=== PATIENT | male | born 1995 | race Caucasian/White ===

== ENCOUNTER 2017-10-31 09:05 | Inpatient (IN) | payer OTHER ==
[~2017-10-31] VITALS: Ht 190.5 cm; Wt 105.0 kg
[2017-10-31] VITALS (7 sets, daily range): BP systolic 102–141; BP diastolic 68–78; PULSE 60–73; RESP 14–20; TEMP 97.8–98.4; O2SAT 97–100
[~2017-10-31 09:05] MED LIST: IBUP800T23 PO; TRAM50 PO
[2017-10-31] MEDS ORDERED: CLINDAMYCIN INJ 900 MG in SODIUM CHLORIDE 0.9% INJ 100 ML IV STA (09:20)
[2017-10-31] MEDS ORDERED: VANCOMYCIN INJ 1,000 MG in SODIUM CHLOR 0.9% 250 ML INJ 250 ML IV STA (09:20)
[2017-10-31] MEDS ORDERED: PIPERACIL-TAZO 4.5 GM PREMIX 100 ML IV STA (09:20)
--- NOTE | 2017-10-31 09:28 | PD ---
HPI Chief Complaint: Skin Problem Time Seen by Provider: 09:12 Travel History International Travel<30 days: No Contact w/Intl Traveler<30days: No Traveled to known affect area: No History of Present Illness HPI Patient gives a 2 day history of left proximal forearm area redness, which worsened over the past 2 days. The pain was not as significant as the amount of swelling that occurred (3/10 pain scale). Patient stated that he presented himself to an urgent care who referred him to an emergency department for IV antibiotics and further care. Patient denies any IV drug abuse. Patient also denies any associated factors such as fever, headache, neck stiffness, chest pain, abdominal pain, back pain. Patient denies any alleviating or aggravating factors. [facility] Social History Tobacco Use: No Allergies-Medications (Allergen,Severity, Reaction): Coded Allergies: clarithromycin (Verified Allergy, Unknown, 10/31/17) Uncoded Allergies: CILLINS (Allergy, Severe, UNKNOWN, 09/18/13) Reported Meds & Prescriptions Reported Meds & Active Scripts Active Review of Systems General / Constitutional: No: Fever Eyes: No: Visual changes HENT: No: Headaches Cardiovascular: No: Chest Pain or Discomfort Respiratory: No: Shortness of Breath Gastrointestinal: No: Abdominal Pain Genitourinary: No: Dysuria Musculoskeletal: No: Pain Skin: Positive Lesions (Redness and swelling to form left) Neurologic: No: Weakness Psychiatric: No: Depression Endocrine: No: Polydipsia Hematologic/Lymphatic: No: Easy Bruising Physical Exam Narrative GENERAL: SKIN: Warm and dry. Left proximal forearm over brachioradialis there is a 12 x 8 oval shaped erythematous/warm/no crepitus lesion. With a streak heading towards his armpit HEAD: Atraumatic. Normocephalic. EYES: Pupils equal and round. No scleral icterus. No injection or drainage. ENT: No nasal bleeding or discharge. Mucous membranes pink and moist. NECK: Trachea midline. No JVD. CARDIOVASCULAR: Regular rate and rhythm. RESPIRATORY: No accessory muscle use. Clear to auscultation. Breath sounds equal bilaterally. GASTROINTESTINAL: Abdomen soft, non-tender, nondistended. Hepatic and splenic margins not palpable. MUSCULOSKELETAL: Extremities without clubbing, cyanosis, or edema. No obvious deformities. NEUROLOGICAL: Awake and alert. No obvious cranial nerve deficits. Motor grossly within normal limits. Five out of 5 muscle strength in the arms and legs. Normal speech. PSYCHIATRIC: Appropriate mood and affect; insight and judgment normal. Data Data Last Documented VS Vital Signs Date Time Temp Pulse Resp B/P (MAP) Pulse Ox O2 Delivery O2 Flow Rate FiO2 10/31/17 11:30 97.8 73 20 119/69 (86) 99 10/31/17 10:23 Room Air Orders Orders Sepsis Workup Initiated (10/31/17 ) Complete Blood Count With Diff (10/31/17 09:20) Comprehensive Metabolic Panel (10/31/17 09:20) Prothrombin Time / Inr (Pt) (10/31/17 09:20) Act Partial Throm Time (Ptt) (10/31/17 09:20) Lactic Acid Sepsis Protocol (10/31/17 09:20) Urinalysis - C+S If Indicated (10/31/17 09:20) Blood Culture (10/31/17 09:20) Blood Glucose (10/31/17 09:20) Ecg Monitoring (10/31/17 09:20) Iv Access Insert/Monitor (10/31/17 09:20) Oximetry (10/31/17 09:20) Piperacil-Tazo 4.5 Gm Premix (Zosyn 4.5 (10/31/17 09:20) Vancomycin Inj (Vancomycin Inj) (10/31/17 09:20) Creatine Kinase (Cpk) (10/31/17 09:20) Westergren Sedimentation Rate (10/31/17 09:20) Sodium Chlor 0.9% 1000 Ml Inj (Ns 1000 M (10/31/17 09:30) Clindamycin 900 Mg/Ns Premix (Cleocin 90 (10/31/17 09:45) Urine Culture (10/31/17 09:30) Drug Screen, Random Urine (10/31/17 11:43) Admit Order (Ed Use Only) (10/31/17 11:44) Labs Laboratory Tests Test 10/31/17 09:30 10/31/17 09:37 Urine Collection Type CATH Urine Color STRAW Urine Turbidity CLEAR Urine pH 5.5 Urine Specific [place] 1.034 Urine Protein TRACE mg/dL Urine Glucose (UA) NEG mg/dL Urine Ketones NEG mg/dL Urine Occult Blood NEG Urine Nitrite NEG Urine Bilirubin NEG Urine Leukocyte Esterase NEG Urine WBC 6-8 /hpf Urine Bacteria RARE /hpf Microscopic Urinalysis Comment CATH-CULTURE IND Urine Opiates Screen NEG Urine Barbiturates Screen NEG Urine Amphetamines Screen NEG Urine Benzodiazepines Screen NEG Urine Cocaine Screen NEG Urine Cannabinoids Screen POS White Blood Count 10.8 TH/MM3 Red Blood Count 5.08 MIL/MM3 Hemoglobin 15.5 GM/DL Hematocrit 44.9 % Mean Corpuscular Volume 88.5 FL Mean Corpuscular Hemoglobin 30.6 PG Mean Corpuscular Hemoglobin Concent 34.6 % Red Cell Distribution Width 12.5 % Platelet Count 287 TH/MM3 Mean Platelet Volume 9.1 FL Neutrophils (%) (Auto) 49.7 % Lymphocytes (%) (Auto) 35.0 % Monocytes (%) (Auto) 10.5 % Eosinophils (%) (Auto) 4.1 % Basophils (%) (Auto) 0.7 % Neutrophils # (Auto) 5.4 TH/MM3 Lymphocytes # (Auto) 3.8 TH/MM3 Monocytes # (Auto) 1.1 TH/MM3 Eosinophils # (Auto) 0.4 TH/MM3 Basophils # (Auto) 0.1 TH/MM3 CBC Comment DIFF FINAL Differential Comment Erythrocyte Sedimentation Rate 6 mm/hr Prothrombin Time 10.3 SEC Prothromb Time International Ratio 1.0 RATIO Activated Partial Thromboplast Time 29.2 SEC Blood Urea Nitrogen 8 MG/DL Creatinine 0.97 MG/DL Random Glucose 88 MG/DL Total Protein 8.6 GM/DL Albumin 4.3 GM/DL Calcium Level 9.0 MG/DL Alkaline Phosphatase 54 U/L Aspartate Amino Transf (AST/SGOT) 15 U/L Alanine Aminotransferase (ALT/SGPT) 24 U/L Total Bilirubin 0.7 MG/DL Sodium Level 138 MEQ/L Potassium Level 3.3 MEQ/L Chloride Level 102 MEQ/L Carbon Dioxide Level 28.3 MEQ/L Anion Gap 8 MEQ/L Estimat Glomerular Filtration Rate 97 ML/MIN Lactic Acid Level 0.7 mmol/L Total Creatine Kinase 80 U/L [facility] Medical Decision Making Medical Screen Exam Complete: Yes Emergency Medical Condition: Yes Medical Record Reviewed: Yes Differential Diagnosis Lymphangitis versus cellulitis versus abscess versus necrotizing fasciitis versus rhabdo Narrative Course CBC shows the leukocytosis no anemia and normal platelet count. Without any left shift Coagulation profile within normal limits Urinalysis negative for any evidence of major UTI however culture is indicated due to a rare bacteria count and 6-8 WBCs noted on a cath obtained urine specimen Chemistry profile shows normal liver functions normal kidney functions normal electrolytes lactic acid negative with normal sed rate Diagnosis Primary Impression: significant Left proximal forearm cellulitis Admitting Information Admitting Physician Requests: Observation Scripts Doxycycline Hyclate (Doxycycline Hyclate) 100 Mg Cap 100 MG PO BID for Infection, #20 CAP 0 Refills Prov: Jesus Alberto Caceres MD 11/01/17 Levofloxacin (Levofloxacin) 750 Mg Tablet 750 MG PO DAILY for Infection, #8 TAB 0 Refills Prov: Jesus Alberto Caceres MD 11/01/17 Juan Manuel Khalil MD Oct 31, 2017 09:28
[2017-10-31] MEDS ORDERED: SODIUM CHLOR 0.9% 1000 ML INJ 1,000 ML IV ONE (09:30)
[2017-10-31] MEDS ORDERED: CLINDAMYCIN 900 MG/NS PREMIX 50 ML IV ONE (09:45)
[2017-10-31 09:58] LABS: AUTOMATED NEUTROPHIL # 5.4 TH/MM3 (1.8-7.7); BASOPHIL # 0.1 TH/MM3 (0-0.2); BASOPHIL % 0.7 % (0.0-2.0); EOSINOPHIL # 0.4 TH/MM3 (0-0.4); EOSINOPHIL % 4.1 % (0.0-4.0); HEMATOCRIT 44.9 % (39.0-51.0); HEMOGLOBIN 15.5 GM/DL (13.0-17.0); LYMPHOCYTE # 3.8 TH/MM3 (1.0-4.8); MEAN CELL VOLUME 88.5 FL (80.0-100.0); MEAN CORPUSCULAR HEMOGLOBIN 30.6 PG (27.0-34.0); MEAN CORPUSCULAR HGB CONC 34.6 % (32.0-36.0); MEAN PLATELET VOLUME 9.1 FL (7.0-11.0); MONO % 10.5 % (0.0-8.0); MONOCYTE # 1.1 TH/MM3 (0-0.9); NEUT % 49.7 % (16.0-70.0); PLATELET COUNT 287 TH/MM3 (150-450); RED BLOOD COUNT 5.08 MIL/MM3 (4.50-5.90); RED CELL DISTRIBUTION WIDTH 12.5 % (11.6-17.2); WHITE BLOOD COUNT 10.8 TH/MM3 (4.0-11.0)
[2017-10-31 09:59] LABS: BILIRUBIN, URINE NEG (NEG); BLOOD, URINE NEG (NEG); GLUCOSE,URINE NEG (NEG); KETONE, URINE NEG (NEG); NITRITE,URINE NEG (NEG); PH, URINE 5.5 (5.0-8.5); URINE LEUKOCYTE ESTERASE NEG (NEG)
[2017-10-31 10:11] LABS: CHLORIDE 102 MEQ/L (98-107); SODIUM (NA) 138 MEQ/L (136-145)
[2017-10-31 10:17] LABS: PROTHROMBIN TIME - PATIENT 10.3 SEC (9.8-11.6)
[2017-10-31 10:18] LABS: ALBUMIN 4.3 GM/DL (3.4-5.0); BICARBONATE 28.3 MEQ/L (21.0-32.0); BLOOD UREA NITROGEN 8 MG/DL (7-18); GLUCOSE,RANDOM 88 MG/DL (74-106)
[2017-10-31 10:21] LABS: ALT (GPT) 24 U/L (12-78); AST (GOT) 15 U/L (15-37); CREATININE 0.97 MG/DL (0.60-1.30); GLOMERULAR FILTRATION RATE 97 ML/MIN (>89)
[2017-10-31 10:22] LABS: TOTAL BILIRUBIN ADULT 0.7 MG/DL (0.2-1.0); TOTAL PROTEIN 8.6 GM/DL (6.4-8.2)
[2017-10-31 10:23] LABS: ALKALINE PHOSPHATASE 54 U/L (45-117)
[2017-10-31 10:24] LABS: URINE COLOR STRAW (YELLW/STRAW)
[2017-10-31 10:25] LABS: BACTERIA, URINE RARE /hpf
[2017-10-31] MEDS ORDERED: SODIUM CHLORIDE 0.9% FLUSH 10 ML FLUSH IV FLUSH PRN (12:00)
[2017-10-31] MEDS ORDERED: METOCLOPRAMIDE HCL 10 MG/2 ML VIAL IV PUSH PRN (12:00)
[2017-10-31] MEDS ORDERED: ONDANSETRON HCL 4 MG/2 ML VIAL IVP PRN (12:00)
[2017-10-31] MEDS ORDERED: ACETAMINOPHEN 325 MG TAB PO PRN ×2 (12:00)
[2017-10-31] MEDS ORDERED: Vancomycin Consult Pharmacy 1 EA OTHER SCH (12:00)
[2017-10-31] MEDS ORDERED: NALOXONE HCL 0.4 MG/ML AMP IV PUSH PRN (12:00)
[2017-10-31] MEDS ORDERED: LACTULOSE SYRUP 20 GM/30 ML CUP PO PRN (13:30)
[2017-10-31] MEDS ORDERED: BISACODYL 10 MG SUPP RECTAL PRN (13:30)
[2017-10-31] MEDS ORDERED: MAGNESIUM HYDROXIDE SUSP 30 ML CUP PO PRN (14:00)
[2017-10-31] MEDS ORDERED: ENOXAPARIN SODIUM 40 MG/0.4 ML SYRINGE SQ SCH (15:00)
[2017-10-31] MEDS: SODIUM CHLOR 0.9% 1000 ML INJ 1,000 ML IV SCH (15:38)
[2017-10-31] MEDS: PIPERACIL-TAZO 4.5 GM PREMIX 100 ML IV SCH ×2 (16:56→23:00)
--- NOTE | 2017-10-31 17:10 | HHI.HP ---
[facility] No Primary Care Physician Admission Diagnosis LEFT FOREARM CELLULITIS Diagnoses: (1) Marijuana use Diagnosis: Secondary (2) Cellulitis of left forearm Diagnosis: Principal Chief Complaint: Left forearm swelling and cellulitis Travel History International Travel<30 Days: No Contact w/Intl Traveler <30 Da: No Traveled to Known Affected Are: No History of Present Illness Patient is a 22-year-old male, Who presented to the emergency department today after being seen at a walk-in clinic and recommended to come to the ER regarding left forearm cellulitis. Patient has at least a 2 day history of left proximal forearm area with redness which is worsened over the past few days. Patient was not as significant as the amount of swelling that occurred painless only maybe 3 out of 10. He was seen at the urgent care clinic and recommended him to come to emergency room for IV antibiotics. Patient denies any IV drug abuse. Denies any fevers denies any headache denies any neck stiffness denies any chest pain denies any abdominal pain denies any back pain denies any aggravating or alleviating factors Patient will be admitted for cellulitis of left forearm has been started on vancomycin and Zosyn with improvement already Review of Systems Constitutional: COMPLAINS OF: Chills, DENIES: Diaphoretic episodes, Fatigue, Fever, Weight gain, Weight loss, Dizziness, Change in appetite, Night Sweats Endocrine: DENIES: Heat/cold intolerance, Polydipsia, Polyuria, Polyphagia Eyes: DENIES: Blurred vision, Diplopia, Eye inflammation, Eye pain, Vision loss , Photosensitivity Ears, nose, mouth, throat: DENIES: Tinnitus, Hearing loss, Vertigo, Nasal discharge, Oral lesions, Throat pain, Hoarseness Respiratory: DENIES: Apneas, Cough, Snoring, Wheezing, Hemoptysis, Sputum production Cardiovascular: DENIES: Chest pain, Palpitations, Syncope, Dyspnea on Exertion , PND Gastrointestinal: DENIES: Abdominal pain, Black stools, Bloody stools, Constipation, Diarrhea, Nausea, Vomiting Genitourinary: DENIES: Sexual dysfunction, Urinary frequency, Urinary incontinence, Urgency, Hematuria, Dysuria Musculoskeletal: DENIES: Joint pain, Muscle aches, Stiffness, Joint Swelling, Back pain Integumentary: COMPLAINS OF: Abnormal pigmentation, Rash (swelling in left forearm with streaking) Hematologic/lymphatic: DENIES: Bruising, Lymphadenopathy Immunologic/allergic: DENIES: Eczema, Urticaria Neurologic: DENIES: Abnormal gait, Headache, Localized weakness, Paresthesias, Seizures, Speech Problems, Tremor, Poor Balance Psychiatric: DENIES: Anxiety, Confusion, Mood changes, Depression, Hallucinations, Agitation, Suicidal Ideation, Homicidal Ideation, Delusions Except as stated in HPI: all other systems reviewed are Neg Past Family Social History Past Medical History Chiari malformation Kyphosis of the spine Past Surgical History Denies Reported Medications Reported Meds & Active Scripts Active Allergies: Coded Allergies: clarithromycin (Verified Allergy, Unknown, 10/31/17) Uncoded Allergies: CILLINS (Allergy, Severe, UNKNOWN, 09/18/13) Active Ordered Medications Current Medications Piperacillin Sod/ Tazobactam Sod 100 ml @ 200 mls/hr ONCE STAT IV Last administered on 10/31/17at 10:28; Start 10/31/17 at 09:20; Stop 10/31/17 at 09:49 ; Status DC Clindamycin Phosphate 900 mg/ Sodium Chloride 106 ml @ 200 mls/hr ONCE STAT IV ; Start 10/31/17 at 09:20; Stop 10/31/17 at 09:51; Status Cancel Vancomycin HCl 1000 mg/Sodium Chloride 250 ml @ 250 mls/hr ONCE STAT IV Last administered on 10/31/17at 11:17; Start 10/31/17 at 09:20; Stop 10/31/17 at 10:19 ; Status DC Sodium Chloride 1,000 ml @ 999 mls/hr BOLUS ONCE IV Last administered on 10/31at 10:00; Start 10/31/17 at 09:30; Stop 10/31/17 at 10:30; Status DC Clindamycin/ Sodium Chloride 50 ml @ 100 mls/hr ONCE ONCE IV Last administered on 10/31/17at 10:00; Start 10/31/17 at 09:45; Stop 10/31/17 at 10:14 ; Status DC Sodium Chloride 1,000 ml @ 100 mls/hr Q10H IV Last administered on 10/31/17at 15:38; Start 10/31/17 at 11:51 Sodium Chloride (NS Flush) 2 ml UNSCH PRN IV FLUSH FLUSH AFTER USING IV ACCESS ; Start 10/31/17 at 12:00 Sodium Chloride (NS Flush) 2 ml BID IV FLUSH ; Start 10/31/17 at 21:00 Acetaminophen (Tylenol) 650 mg Q4H PRN PO TEMP > 100.4; Start 10/31/17 at 12:00 Ondansetron HCl (Zofran Inj) 4 mg Q6H PRN IVP NAUSEA OR VOMITING; Start at 12:00 Metoclopramide HCl (Reglan Inj) 5 mg Q6H PRN IV PUSH NAUSEA OR VOMITING; Start 10/31/17 at 12:00 Zolpidem Tartrate (Ambien) 5 mg HS PRN PO INSOMNIA; Start 10/31/17 at 21:00 Enoxaparin Sodium (Lovenox Inj) 40 mg Q24H SQ Last administered on 10/31/17at 15 :39; Start 10/31/17 at 15:00 Acetaminophen (Tylenol) 650 mg Q6H PRN PO PAIN SCALE 1 TO 2; Start 10/31/17 at 12:00 Naloxone HCl (Narcan Inj) 0.4 mg UNSCH PRN IV PUSH SEE LABEL COMMENTS; Start at 12:00 Senna/Docusate Sodium (Shelbie-Colace) 1 tab BID PO ; Start 10/31/17 at 21:00 Magnesium Hydroxide (Milk Of Magnesia Liq) 30 ml Q12HR PRN PO Mild constipation ; Start 10/31/17 at 14:00 Sennosides (Senokot) 17.2 mg Q12HR PRN PO Moderate constipation; Start at 21:00 Bisacodyl (Dulcolax Supp) 10 mg DAILY PRN RECTAL SEVERE CONSITIPATION; Start at 13:30 Lactulose (Lactulose Liq) 30 ml DAILY PRN PO SEVERE CONSITIPATION; Start at 13:30 Pharmacy Profile Note 0 ml @ 0 mls/hr UNSCH OTHER ; Start 10/31/17 at 12:00 Piperacillin Sod/ Tazobactam Sod 100 ml @ 200 mls/hr Q6H IV Last administered on 2/26/18at 16:56; Start 10/31/17 at 16:00 Vancomycin HCl 2000 mg/Sodium Chloride 520 ml @ 250 mls/hr Q12H IV ; Start at 18:00 Family History Father with history of IV drug abuse in detention Mother no medical problems Social History Smokes marijuana Denies any illicits denies any alcohol or tobacco Physical Exam Vital Signs Vital Signs Date Time Temp Pulse Resp B/P (MAP) Pulse Ox O2 Delivery O2 Flow Rate FiO2 10/31/17 15:38 97.9 70 20 133/71 (91) 99 10/31/17 12:16 85 18 134/78 (96) 99 10/31/17 11:30 97.8 73 20 119/69 (86) 99 10/31/17 10:23 68 18 141/77 (98) 100 Room Air 10/31/17 09:42 98 Room Air 10/31/17 09:05 97.9 65 14 140/68 (92) 100 Physical Exam GENERAL: This is a well-nourished, well-developed patient, in no apparent distress. SKIN: No ecchymoses or lesions. Cool and dry. Rash involving the left forearm previously had streaking up above the antecubital fossa. Now only below the antecubital fossa with some swelling and tenderness has some warmth of left forearm HEAD: Atraumatic. Normocephalic. No temporal or scalp tenderness. EYES: Pupils equal round and reactive. Extraocular motions intact. No scleral icterus. No injection or drainage. ENT: Nose without bleeding, purulent drainage or septal hematoma. Throat without erythema, tonsillar hypertrophy or exudate. Uvula midline. Airway patent. NECK: Trachea midline. No JVD or lymphadenopathy. Supple, nontender, no meningeal signs. CARDIOVASCULAR: Regular rate and rhythm without murmurs, gallops, or rubs. RESPIRATORY: Clear to auscultation. Breath sounds equal bilaterally. No wheezes , rales, or rhonchi. GASTROINTESTINAL: Abdomen soft, non-tender, nondistended. No hepato-splenomegaly , or palpable masses. No guarding. MUSCULOSKELETAL: Extremities without clubbing, cyanosis, or edema. No joint tenderness, effusion, or edema noted. No calf tenderness. Negative Homans sign bilaterally. NEUROLOGICAL: Awake and alert. Cranial nerves II through XII intact. Motor and sensory grossly within normal limits. Five out of 5 muscle strength in all muscle groups. Normal speech. Insight and judgment is good Mood and behavior is appropriate Laboratory Laboratory Tests Test 10/31/17 09:30 10/31/17 09:37 Urine Collection Type CATH Urine Color STRAW Urine Turbidity CLEAR Urine pH 5.5 Urine Specific [place] 1.034 Urine Protein TRACE Urine Glucose (UA) NEG Urine Ketones NEG Urine Occult Blood NEG Urine Nitrite NEG Urine Bilirubin NEG Urine Leukocyte Esterase NEG Urine WBC 6-8 Urine Bacteria RARE Microscopic Urinalysis Comment CATH-CULTURE IND Urine Opiates Screen NEG Urine Barbiturates Screen NEG Urine Amphetamines Screen NEG Urine Benzodiazepines Screen NEG Urine Cocaine Screen NEG Urine Cannabinoids Screen POS White Blood Count 10.8 Red Blood Count 5.08 Hemoglobin 15.5 Hematocrit 44.9 Mean Corpuscular Volume 88.5 Mean Corpuscular Hemoglobin 30.6 Mean Corpuscular Hemoglobin Concent 34.6 Red Cell Distribution Width 12.5 Platelet Count 287 Mean Platelet Volume 9.1 Neutrophils (%) (Auto) 49.7 Lymphocytes (%) (Auto) 35.0 Monocytes (%) (Auto) 10.5 Eosinophils (%) (Auto) 4.1 Basophils (%) (Auto) 0.7 Neutrophils # (Auto) 5.4 Lymphocytes # (Auto) 3.8 Monocytes # (Auto) 1.1 Eosinophils # (Auto) 0.4 Basophils # (Auto) 0.1 CBC Comment DIFF FINAL Differential Comment Erythrocyte Sedimentation Rate 6 Prothrombin Time 10.3 Prothromb Time International Ratio 1.0 Activated Partial Thromboplast Time 29.2 Blood Urea Nitrogen 8 Creatinine 0.97 Random Glucose 88 Total Protein 8.6 Albumin 4.3 Calcium Level 9.0 Alkaline Phosphatase 54 Aspartate Amino Transf (AST/SGOT) 15 Alanine Aminotransferase (ALT/SGPT) 24 Total Bilirubin 0.7 Sodium Level 138 Potassium Level 3.3 Chloride Level 102 Carbon Dioxide Level 28.3 Anion Gap 8 Estimat Glomerular Filtration Rate 97 Lactic Acid Level 0.7 Total Creatine Kinase 80 Date/Time Source Procedure Growth Status 10/31/17 09:37 Blood Peripheral Aerobic Blood Culture Pending Received 10/31/17 09:37 Blood Peripheral Anaerobic Blood Culture Pending Received 10/31/17 09:30 Urine Clean Catch Urine Culture Pending Received Result Diagram: 10/31/1737 10/31/1737 Caprini VTE Risk Assessment Caprini VTE Risk Assessment: No/Low Risk (score <= 1) Caprini Risk Assessment Model Point Value = 1 Point Value = 2 Point Value = 3 Point Value = 5 Age 41-60 Minor surgery BMI > 25 kg/m2 Swollen legs Varicose veins or History of unexplained or recurrent spontaneous Oral contraceptives or hormone replacement Sepsis (< 1 month) Serious lung disease, including pneumonia (< 1 month) Abnormal pulmonary function Acute myocardial infarction Congestive heart failure (< 1 month) History of inflammatory bowel disease Medical patient at bed rest Age 61-74 Arthroscopic surgery Major open surgery (> 45 min) Laparoscopic surgery (> 45 min) Malignancy Confined to bed (> 72 hours) Immobilizing plaster cast Central venous access Age >= 75 History of VTE Family history of VTE Factor V Leiden Prothrombin [id number] Lupus anticoagulant Anticardiolipin antibodies Elevated serum homocysteine Heparin-induced thrombocytopenia Other congenital or acquired thrombophilia Stroke (< 1 month) Elective arthroplasty Hip, pelvis, or leg fracture Acute spinal cord injury (< 1 month) Prophylaxis Regimen Total Risk Factor Score Risk Level Prophylaxis Regimen 0-1 Low Early ambulation 2 Moderate Order ONE of the following: *Sequential Compression Device (SCD) *Heparin 5000 units SQ BID 3-4 Higher Order ONE of the following medications: *Heparin 5000 units SQ TID *Enoxaparin/Lovenox 40 mg SQ daily (WT < 150 kg, CrCl > 30 mL/min) *Enoxaparin/Lovenox 30 mg SQ daily (WT < 150 kg, CrCl > 10-29 mL/min) *Enoxaparin/Lovenox 30 mg SQ BID (WT < 150 kg, CrCl > 30 mL/min) AND/OR *Sequential Compression Device (SCD) 5 or more Highest Order ONE of the following medications: *Heparin 5000 units SQ TID (Preferred with Epidurals) *Enoxaparin/Lovenox 40 mg SQ daily (WT < 150 kg, CrCl > 30 mL/min) *Enoxaparin/Lovenox 30 mg SQ daily (WT < 150 kg, CrCl > 10-29 mL/min) *Enoxaparin/Lovenox 30 mg SQ BID (WT < 150 kg, CrCl > 30 mL/min) AND *Sequential Compression Device (SCD) Assessment and Plan Problem List: (1) Hypokalemia ICD Code: E87.6 - Hypokalemia (2) Cellulitis of left forearm ICD Code: L03.114 - Cellulitis of left upper limb (3) Marijuana use ICD Code: F12.90 - Cannabis use, unspecified, uncomplicated Assessment and Plan Cellulitis of left forearm with streaking with improvement with vancomycin and Zosyn We'll ask pharmacy to consult regarding the vancomycin. A.m. labs Continue IV fluids Hypokalemia Will replace Marijuana abuse recommend cessation A.m. labs Pain control as needed DVT prophylaxis Code Status Full code Discussed Condition With Emergency room physician as well as the patient and his RN Physician Certification 2 Midnight Certification Type: Admission for Inpatient Services Order for Inpatient Services The services are ordered in accordance with Medicare regulations or non- Medicare payer requirements, as applicable. In the case of services not specified as inpatient-only, they are appropriately provided as inpatient services in accordance with the 2-midnight benchmark. Estimated LOS (days): 2 days is the estimated time the patient will need to remain in the hospital, assuming treatment plan goals are met and no additional complications. Post-Hospital Plan: Home Avtar Ramsey DO Oct 31, 2017 17:10
[2017-10-31] MEDS: VANCOMYCIN INJ 2,000 MG in SODIUM CHLORID 0.9% 500 ML INJ 500 ML IV SCH (17:42)
[2017-10-31] MEDS ORDERED: POTASSIUM CHLORIDE 20 MEQ CONTROLLED RELEASE TAB PO ONE (18:00)
[2017-10-31] MEDS: SODIUM CHLORIDE 0.9% FLUSH 10 ML FLUSH IV FLUSH SCH (20:03)
[2017-10-31] MEDS ORDERED: SENNOSIDES 8.6 MG TAB PO PRN (21:00)
[2017-10-31] MEDS: DOCUSATE SODIUM 50 MG/SENNA 8.6 MG TAB PO SCH (21:00)
[2017-10-31] MEDS ORDERED: ZOLPIDEM TARTRATE 5 MG TAB PO PRN (21:00)
[2017-11-01] VITALS: BP 119/68; PULSE 72; RESP 20; TEMP 97.8; O2SAT 98
[2017-11-01] MEDS: PIPERACIL-TAZO 4.5 GM PREMIX 100 ML IV SCH ×2 (04:43→10:00)
[2017-11-01] MEDS: VANCOMYCIN INJ 2,000 MG in SODIUM CHLORID 0.9% 500 ML INJ 500 ML IV SCH (04:45)
[2017-11-01 07:04] LABS: AUTOMATED NEUTROPHIL # 4.5 TH/MM3 (1.8-7.7); BASOPHIL # 0.1 TH/MM3 (0-0.2); BASOPHIL % 0.6 % (0.0-2.0); EOSINOPHIL # 0.5 TH/MM3 (0-0.4); EOSINOPHIL % 6.4 % (0.0-4.0); HEMATOCRIT 44.7 % (39.0-51.0); HEMOGLOBIN 14.5 GM/DL (13.0-17.0); LYMPH % 28.8 % (9.0-44.0); LYMPHOCYTE # 2.4 TH/MM3 (1.0-4.8); MEAN CORPUSCULAR HEMOGLOBIN 28.9 PG (27.0-34.0); MEAN CORPUSCULAR HGB CONC 32.5 % (32.0-36.0); MEAN PLATELET VOLUME 9.4 FL (7.0-11.0); MONO % 11.3 % (0.0-8.0); MONOCYTE # 0.9 TH/MM3 (0-0.9); NEUT % 52.9 % (16.0-70.0); PLATELET COUNT 253 TH/MM3 (150-450); RED BLOOD COUNT 5.02 MIL/MM3 (4.50-5.90); RED CELL DISTRIBUTION WIDTH 12.2 % (11.6-17.2); WHITE BLOOD COUNT 8.4 TH/MM3 (4.0-11.0)
[2017-11-01 07:17] LABS: CHLORIDE 108 MEQ/L (98-107); SODIUM (NA) 139 MEQ/L (136-145)
[2017-11-01 07:31] LABS: CALCIUM 8.8 MG/DL (8.5-10.1)
[2017-11-01 07:32] LABS: BICARBONATE 23.4 MEQ/L (21.0-32.0); BLOOD UREA NITROGEN 5 MG/DL (7-18); GLUCOSE,RANDOM 82 MG/DL (74-106); MAGNESIUM 2.2 MG/DL (1.5-2.5)
[2017-11-01 07:35] LABS: ALT (GPT) 29 U/L (12-78); AST (GOT) 19 U/L (15-37); CREATININE 0.82 MG/DL (0.60-1.30); GLOMERULAR FILTRATION RATE 117 ML/MIN (>89); PHOSPHORUS 3.6 MG/DL (2.5-4.9)
[2017-11-01 07:36] LABS: TOTAL BILIRUBIN ADULT 1.2 MG/DL (0.2-1.0)
[2017-11-01 07:37] LABS: ALKALINE PHOSPHATASE 50 U/L (45-117); TOTAL PROTEIN 8.1 GM/DL (6.4-8.2)
[2017-11-01 08:00] VITALS: BP 114/56; PULSE 50; RESP 16; TEMP 97.3; O2SAT 99
[2017-11-01] MEDS: SODIUM CHLORIDE 0.9% FLUSH 10 ML FLUSH IV FLUSH SCH (08:37)
[2017-11-01] MEDS: DOCUSATE SODIUM 50 MG/SENNA 8.6 MG TAB PO SCH (08:38)
[2017-11-01 10:02] LABS: FREE T4 1.12 NG/DL (0.76-1.46)
[2017-11-01] MEDS: SODIUM CHLOR 0.9% 1000 ML INJ 1,000 ML IV SCH (10:07)
[2017-11-01] MEDS ORDERED: LEVO750T3 PO (11:26)
[2017-11-01] MEDS ORDERED: DOXY100C PO (11:26)
--- NOTE | 2017-11-01 11:26 | HHI.DCPOC ---
Discharge Care Plan Diagnosis: (1) Cellulitis of left forearm Goals to Promote Your Health * To prevent worsening of your condition and complications * To maintain your health at the optimal level Directions to Meet Your Goals Take your medications as prescribed Follow your dietary instruction Follow activity as directed Keep your appointments as scheduled Take your immunizations and boosters as scheduled If your symptoms worsen call your PCP, if no PCP go to Urgent Care Center or Emergency Room Smoking is Dangerous to Your Health. Avoid second hand smoke Call the 24-hour hour crisis hotline for domestic abuse at Jesus Alberto Caceres MD Nov 01, 2017 11:26
--- NOTE | 2017-11-01 11:28 | HHI.PR ---
Subjective Remarks Nursing denies any deterioration since last night. Patient also says he essentially has no pain. Says that his redness and swelling is much better since yesterday. Denies any nausea vomiting fevers. Objective Vital Signs Date Time Temp Pulse Resp B/P (MAP) Pulse Ox O2 Delivery O2 Flow Rate FiO2 11/01/17 00:00 97.8 72 20 119/68 (85) 98 10/31/17 20:00 98.4 60 20 102/71 (81) 97 10/31/17 15:38 97.9 70 20 133/71 (91) 99 10/31/17 12:16 85 18 134/78 (96) 99 10/31/17 11:30 97.8 73 20 119/69 (86) 99 I/O 10/31/17 10/31/17 10/31/17 11/01/17 11/01/17 11/01/17 07:00 15:00 23:00 07:00 15:00 23:00 Intake Total 1353 ml 2880 ml 1450 ml Balance 1353 ml 2880 ml 1450 ml Intake Oral 2580 ml IV Total 1353 ml 300 ml 1450 ml # Voids 7 # Bowel Movements 0 Result Diagram: 11/01/1725 11/01/17 0625 Objective Remarks Minimal scant erythema on the posterior aspect of the patient's left forearm, has 3 mild raised papular lesions on the proximal aspect of his left forearm that is more posterior lateral with no exudates noted A/P Assessment and Plan Cellulitis significantly improved in the left forearm. Patient is really wanting to go home, has good follow-up. Has been afebrile since admission. Patient has been maximal benefit from hospitalization and is clinically stable for discharge with outpatient antibiotics. Has been informed that if his blood cultures returned positive for true infection we will inform him. Jesus Alberto Caceres MD Nov 01, 2017 11:28
[2017-11-01 15:50] LABS: HEMOGLOBIN A1C 5.2 % (4.3-6.0)
== END 2017-11-01 13:25 | disposition home or self-care (01) | DRG 603 ==
LOC: PHED 09:05 → PHEDA 11:45 → OBSVTOIN 11:53 → PH3B 12:27
PROVIDERS: ADMIT Hospitalist; ATTEND Hospitalist
DX: L03.114 Cellulitis of left upper limb (principal); E87.6 Hypokalemia; M40.209 Unspecified kyphosis, site unspecified; F12.10 Cannabis abuse, uncomplicated; Z88.0 Allergy status to penicillin; Z88.1 Allergy status to other antibiotic agents
CPT/HCPCS: 80053; 80307; 81001; 82550; 83036; 83605; 83735; 84100; 84439; 84443; 85025; 85610; 85652; 85730; 87040; 87086; 96365; J1650; J2543; J3370; J7030; J7040; J7050

== ENCOUNTER 2017-11-04 20:14 | Emergency (ER) | payer OTHER ==
[~2017-11-04] VITALS: Ht 190.5 cm; Wt 103.2 kg
[~2017-11-04 20:14] MED LIST changes: +DOXY100C PO; -IBUP800T23 PO; +LEVO750T3 PO; -TRAM50 PO
[2017-11-04 20:25] VITALS: BP 121/78; PULSE 81; RESP 14; TEMP 98.4; O2SAT 97
--- NOTE | 2017-11-04 20:51 | PD ---
HPI Chief Complaint: Skin Problem Time Seen by Provider: 20:42 Travel History International Travel<30 days: No Contact w/Intl Traveler<30days: No Traveled to known affect area: No History of Present Illness HPI Patient is a 22-year-old male presents emergency department for evaluation of right lower extremity redness. Patient recently was admitted for cellulitis of his left upper extremity, he has been taking doxycycline and Levaquin, he was admitted for short time and was on vancomycin as well as Zosyn and for short- term clindamycin. Patient states he was sitting playing video games for an extended period of time with his right leg folded underneath his left, he thought initially there was just some pressure redness to his right lower extremity but when the redness did not go away he decided to come in and be seen , no fevers no nausea no vomiting otherwise feeling well. He states his left upper extremity cellulitis is nearly completely healed he has been taking his antibiotics as prescribed. Symptoms started several hours prior to arrival, constant, associated signs and symptoms in context as above PFSH Past Medical History Cancer: No Cardiovascular Problems: No Diminished Hearing: No Genitourinary: No Immune Disorder: No Musculoskeletal: Yes Neurologic: Yes (Headaches none since approx 6 years) Psychiatric: No Reproductive: No Respiratory: No Integumentary: Yes Immunizations Current: Yes Tetanus Vaccination: > 5 Years Influenza Vaccination: No Past Surgical History Surgical History: No Previous Surgery Social History Alcohol Use: Yes (OCCAS) Tobacco Use: No (POT) Substance Use: Yes (marijuana daily) Allergies-Medications (Allergen,Severity, Reaction): Coded Allergies: clarithromycin (Verified Allergy, Unknown, 11/04/17) Uncoded Allergies: CILLINS (Allergy, Severe, UNKNOWN, 09/18/13) Reported Meds & Prescriptions Reported Meds & Active Scripts Active Zofran (Ondansetron HCl) 4 Mg Tab 4 Mg PO Q6HR PRN Doxycycline Hyclate 100 Mg Cap 100 Mg PO BID Levofloxacin 750 Mg Tablet 750 Mg PO DAILY Review of Systems Except as stated in HPI: all other systems reviewed are Neg Physical Exam Narrative GENERAL: Well-nourished, well-developed patient. SKIN: Focused skin assessment warm/dry. There is an area of redness about the anterior medial aspect of the right calf. Fairly well-circumscribed and could be consistent with mild pressure injury. The compartments are soft, the total dimensions of the area probably just greater than a silver dollar size little elongated probably 10 cm x 6 cm. There is only a small bruise on the left volar forearm just distal to the antecubital fossa, I see no cellulitis in this area. HEAD: Normocephalic. EYES: No scleral icterus. No injection or drainage. NECK: Supple, trachea midline. No JVD or lymphadenopathy. CARDIOVASCULAR: Regular rate and rhythm without murmurs, gallops, or rubs. RESPIRATORY: Breath sounds equal bilaterally. No accessory muscle use. GASTROINTESTINAL: Abdomen soft, non-tender, nondistended. MUSCULOSKELETAL: No cyanosis, or edema. Pulses motor and sensory intact distally in all 4 extremity's BACK: Nontender without obvious deformity. No CVA tenderness. Data Data Last Documented VS Vital Signs Date Time Temp Pulse Resp B/P (MAP) Pulse Ox O2 Delivery O2 Flow Rate FiO2 11/04/17 21:37 11/04/17 20:25 98.4 81 14 97 Orders Orders Ed Discharge Order (11/04/17 21:32) MDM Medical Decision Making Medical Screen Exam Complete: Yes Emergency Medical Condition: Yes Differential Diagnosis Cellulitis, mild pressure skin injury, pressure ulcer Narrative Course Patient room to the emergency department certainly he looks well and in no obvious distress. I think that this redness is probably secondary to prolonged pressure while sitting crosslegged playing video games. The area itself is not warm to touch, he appears well he is already on doxycycline and Levaquin and I did think that if it is working for cellulitis of his upper extremity there is not a whole lot reason to change this at this time. I discussed with the patient who is reliable for follow-up. Of observation at home certainly if it worsens for the next 24 hours he should return emergency department and if no better at 48 hours he should return again. He verbalized understanding and agreement, he did request some Zofran because the antibiotics have made him nauseous months. He is stable for discharge per Diagnosis Primary Impression: Cellulitis of right leg Med/Other Pt SpecificInfo: Prescription(s) given Scripts Ondansetron (Zofran) 4 Mg Tab 4 MG PO Q6HR Y for NAUSEA OR VOMITING, #20 TAB 0 Refills Prov: Cosmo Soares MD 11/04/17 Disposition: 01 DISCHARGE HOME Condition: Stable Cosmo Soares MD Nov 04, 2017 20:51
[2017-11-04] MEDS ORDERED: ZOFR4TAB PO (21:32)
== END 2017-11-04 21:46 | disposition home or self-care (01) ==
LOC: PHEFT 20:14
DX: L03.115 Cellulitis of right lower limb (principal)
CPT/HCPCS: 99283